=== PATIENT | male | born 1935 | race Caucasian/White ===

== ENCOUNTER 2016-10-12 07:01 | Day surgery (SDC) | payer MEDICARE, OTHER ==
[2016-10-05 13:56] LABS: HEMATOCRIT 50.3 % (40.0-51.0)
[2016-10-05 14:11] LABS: BUN (BLOOD UREA NITROGEN) 27 MG/DL (6-23); CHLORIDE, SERUM 110 MMOL/L (96-112); CO2 (CARBON DIOXIDE) 29 MMOL/L (24-34); CREATININE 1.45 MG/DL (0.70-1.30); GFR AFRICAN AMERICAN 52 ML/MIN (>=60); GFR NON AFRICAN AMERICAN 45 ML/MIN (>=60); GLUCOSE, SERUM 105 MG/DL (60-99); POTASSIUM, SERUM 4.3 MMOL/L (3.5-5.3); SODIUM, SERUM 146 MMOL/L (135-148)
--- NOTE | ~2016-10-12 | OP ---
Record Of Operation [facility] [address] [place]. [address] NAME: OMEGA WILKINS : 35 STATUS : REG [facility]#: [id number] AGE: 81 ADM/REG DATE : 10/12/16 MR#: [id number] REPORT SERV DATE: 10/12/16 DICTATED BY: TRACI CHERRY DATE: 10/12/16 REPORT STATUS : Draft TRANSCRIBED BY: MODL DATE: 10/12/16 DATE OF PROCEDURE: 10/12/2016 PREOPERATIVE DIAGNOSES: 1. 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 2. Basal cell carcinoma of the left nasal ala. POSTOPERATIVE DIAGNOSES: 1. 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 2. Basal cell carcinoma of the left nasal ala. PROCEDURE PERFORMED: 1. Wide local excision of nasal super tip basal cell carcinoma with a pursestring closure of 1.0 x 0.9 cm defect. 2. Wide local excision, left nasal ala basal cell carcinoma with simple closure of 1.0 x 0.8 cm defect. SURGEON: Traci Cherry M.D. AUTOMOTIVE STARTER REPAIRER: Kassi Castro. ANESTHESIA: General. COMPLICATIONS: None. CONDITION: Stable to recovery. INDICATIONS: 81-year-old male, with basal cell carcinoma as mentioned above involving the nasal super tip and left nasal ala. PROCEDURE IN DETAIL: The patient was identified in preoperative holding, taken back to the operating room, and placed supine on the operating room table. General anesthesia was established using a laryngeal mask airway. A time-out was called, the patient and procedure were confirmed. After this, the nasal super tip and the left nasal ala were outlined with a surgical marking pen around the biopsy site approximately 2 to 3 mm, and infiltrated subcutaneously with 1% lidocaine with 1:100,000 epinephrine, a total of 1 mL. He was then prepped and draped for the operation. Using 2.5x loupe magnification and headlight illumination, the operation commenced. A 15C blade was used to excise the nasal tip lesion around the areas marked down into the subcutaneous tissue. It was inked at 12 o'clock and sent for frozen section analysis. Similarly, the left nasal ala was excised using a single skin hook and a 15C blade, excising around the biopsy site down into the subcutaneous tissue just superficial to the perichondrium of the ala. The lesion was inked at 12 o'clock and sent for frozen section. Frozen section showed small focal basal cell residual in the super tip with margins clear. Record Of Operation [address] [address] NAME: OMEGA WILKINS : 35 STATUS : REG [facility] PAT#: [id number] AGE: 81 ADM/REG DATE : 10/12/16 MR#: [id number] REPORT SERV DATE: 10/12/16 DICTATED BY: TRACI CHERRY DATE: 10/12/16 REPORT STATUS : Draft TRANSCRIBED BY: MODL DATE: 10/12/16 The left nasal ala showed a biopsy site without evidence of residual tumor. At this point, a 5-0 Prolene pursestring stitch was used to close the super tip lesion which was 1 cm x 0.8 cm in diameter. Dermabond was placed followed by Steri-Strips. The left ala was closed on the superior and inferior edges with 5-0 Prolene interrupted suture. The central area was left to granulate. Dermabond was placed there along with Steri-Strips. The patient was awakened and taken to recovery in stable condition. PH/MODL Traci Cherry M.D. / [id number] CC: Virgil Cheema M.D.
[~2016-10-12 07:01] MED LIST: ASAB PO; CARDU4 PO; CARTIA XT180 MG/24 PO; ELIQUIS 5 MG TAB5 MG; FISH-EPA1000 MG PO; FLECAINIDE50 MG PO; JANTOVEN1 MG PO; MULTIPLE VIT PO; NORV5 PO; PRIN20 PO; ZESTORETIC PO
[2016-10-12 07:46] LABS: PROTIME (NOT ORD) 13.5 SEC (12.0-14.5)
== END 2016-10-12 12:43 | disposition home or self-care (01) ==
LOC: SDC 07:01
PROVIDERS: Specialist
PROC: 09BK0ZX Excision of Nasal Mucosa and Soft Tissue, Open Approach, Diagnostic (ICD-10-PCS; 2016-10-12)
PROC: 09BK0ZX Excision of Nasal Mucosa and Soft Tissue, Open Approach, Diagnostic (ICD-10-PCS; principal; 2016-10-12 10:00)
DX: C44.311 Basal cell carcinoma of skin of nose (principal); I48.91 Unspecified atrial fibrillation; E78.5 Hyperlipidemia, unspecified; N18.9 Chronic kidney disease, unspecified; Z85.46 Personal history of malignant neoplasm of prostate; Z98.890 Other specified postprocedural states; Z90.79 Acquired absence of other genital organ(s)
CPT/HCPCS: 80048; 85014; 85018; 85610; 88305; 88331; 93005; A9270-GY; J0690; J2405; J3010